=== PATIENT | female | born 1980 | race American Indian/Alaskan Native ===

== ENCOUNTER 2016-10-18 12:26 | Emergency (ER) | payer OTHER ==
--- NOTE | 2016-10-18 16:11 | Emergency Department Report ---
- General Chief Complaint: Upper Respiratory Infection Stated Complaint: COLD SYMPTOMS Time Seen by Provider: 10/18/16 15:55 Source: patient Mode of arrival: Ambulatory Limitations: No Limitations - History of Present Illness Initial Comments: The patient reports cold-like symptoms such as fever, chills, body aches, cough with chest discomfort, sore throat and nausea that started 2 days ago. LMP 2016 MD Complaint: fever, cough, sore throat, rhinorrhea Onset/Timin -: days(s) Severity: severe Severity scale (0 -10): 8 Quality: dull, aching Consistency: constant Improves With: nothing Worsens With: changing head position Context: sick contacts Associated Symptoms: fever, chills, myalgias, rhinorrhea, sore throat, cough, chest pain, nausea. denies: diaphoresis, headache, nasal congestion, stiff neck , shortness of breath, abdominal pain, vomiting, diarrhea, dysuria, rash, confusion, right sweats, weight loss, epistaxis, hoarseness, ear pain Treatments Prior to Arrival: none - Related Data Previous Rx's Medication Instructions Recorded Last Taken Type Cyclobenzaprine HCl [Flexeril 5 MG 5 mg PO Q8HR PRN #15 tablet 09/13/15 Unknown Rx TAB] Azithromycin [Zithromax] 250 mg PO DAILY #6 tablet 07/28/16 Unknown Rx Ibuprofen [Motrin 800 MG tab] 800 mg PO Q8HR PRN #20 tablet 09/24/16 Unknown Rx Acyclovir [Zovirax Tab] 800 mg PO QID #28 tab 10/01/16 Unknown Rx methylPREDNISolone [Medrol] 4 mg PO QAM #21 tab.ds.pk 10/01/16 Unknown Rx traMADol [Ultram 50 MG tab] 50 mg PO TID PRN #21 tablet 10/01/16 Unknown Rx Benzonatate [Tessalon Perles] 100 mg PO Q8HR #12 capsule 10/18/16 Unknown Rx Allergies Allergy/AdvReac Type Severity Reaction Status Date / Time shellfish derived Allergy Angioedema Verified 07/28/16 14:32 vancomycin Allergy Hives Verified 07/28/16 14:32 ED Review of Systems ROS: Stated complaint: COLD SYMPTOMS Other details as noted in HPI Constitutional: chills, fever. denies: diaphoresis, malaise, weakness Eyes: denies: eye pain, eye discharge, vision change ENT: throat pain, congestion (nasal). denies: ear pain, dental pain, hearing loss, epistaxis Respiratory: cough (productive). denies: orthopnea, shortness of breath, SOB with exertion, SOB at rest, stridor, wheezing Cardiovascular: chest pain (discomfort from coughing). denies: palpitations, dyspnea on exertion, orthopnea, edema, syncope, paroxysmal nocturnal dyspnea Gastrointestinal: nausea. denies: abdominal pain, vomiting, diarrhea, constipation, hematemesis, melena, hematochezia Genitourinary: denies: urgency, dysuria, frequency, hematuria, discharge Musculoskeletal: arthralgia (body aches). denies: back pain, joint swelling, myalgia Skin: denies: rash, lesions, change in color, change in hair/nails, pruritus Neurological: denies: headache, weakness, numbness, paresthesias, confusion, abnormal gait, vertigo Psychiatric: denies: anxiety, depression Hematological/Lymphatic: denies: easy bleeding, easy bruising, swollen glands ED Past Medical Hx - Social History Smoking Status: Never Smoker Substance Use Type: None - Medications Home Medications: Home Medications Medication Instructions Recorded Confirmed Last Taken Type Cyclobenzaprine HCl [Flexeril 5 MG 5 mg PO Q8HR PRN #15 tablet 09/13/15 Unknown Rx TAB] Azithromycin [Zithromax] 250 mg PO DAILY #6 tablet 07/28/16 Unknown Rx Ibuprofen [Motrin 800 MG tab] 800 mg PO Q8HR PRN #20 tablet 09/24/16 Unknown Rx Acyclovir [Zovirax Tab] 800 mg PO QID #28 tab 10/01/16 Unknown Rx methylPREDNISolone [Medrol] 4 mg PO QAM #21 tab.ds.pk 10/01/16 Unknown Rx traMADol [Ultram 50 MG tab] 50 mg PO TID PRN #21 tablet 10/01/16 Unknown Rx Benzonatate [Tessalon Perles] 100 mg PO Q8HR #12 capsule 10/18/16 Unknown Rx ED Physical Exam - General Limitations: No Limitations General appearance: alert, in no apparent distress - Head Head exam: Present: atraumatic, normocephalic, normal inspection - Eye Eye exam: Present: normal appearance, PERRL, EOMI Pupils: Present: normal accommodation - ENT ENT exam: Present: normal exam, normal orophraynx, mucous membranes moist, TM's normal bilaterally, normal external ear exam, other (swelling to nasal turbinates). Absent: mucous membranes dry - Expanded ENT Exam Expanded Ear exam: Present: normal external inspection. Absent: auricular hematoma, auricular trauma Mouth exam: Present: normal external inspection, tongue normal. Absent: drooling, trismus, muffled voice, tongue elevation, laceration Teeth exam: Present: normal inspection Throat exam: Positive: normal inspection. Negative: tonsillar erythema, tonsillomegaly, tonsillar exudate, R peritonsillar mass, L peritonsillar mass - Neck Neck exam: Present: normal inspection, full ROM. Absent: tenderness, meningismus, lymphadenopathy, thyromegaly - Respiratory Respiratory exam: Present: normal lung sounds bilaterally, chest wall tenderness (with palpation). Absent: respiratory distress, wheezes, rales, rhonchi, stridor, accessory muscle use, decreased breath sounds, prolonged expiratory - Cardiovascular Cardiovascular Exam: Present: regular rate, normal rhythm, normal heart sounds. Absent: systolic murmur, diastolic murmur, rubs, gallop, clicks, JVD, S3, S4 - GI/Abdominal GI/Abdominal exam: Present: soft, normal bowel sounds. Absent: distended, tenderness, guarding, rebound, rigid - Extremities Exam Extremities exam: Present: normal inspection, full ROM, normal capillary refill. Absent: tenderness, pedal edema, joint swelling, calf tenderness - Back Exam Back exam: Present: normal inspection. Absent: CVA tenderness (R), CVA tenderness (L) - Neurological Exam Neurological exam: Present: alert, oriented X3, CN II-XII intact, normal gait, reflexes normal. Absent: motor sensory deficit - Psychiatric Psychiatric exam: Present: normal affect, normal mood - Skin Skin exam: Present: warm, dry, intact, normal color. Absent: rash ED Course Vital Signs 10/18/16 12:53 Temperature 98.2 F Pulse Rate 82 Respiratory 16 Rate Blood Pressure 130/76 O2 Sat by Pulse 98 Oximetry ED Medical Decision Making - Lab Data Vital Signs 10/18/16 12:53 Temperature 98.2 F Pulse Rate 82 Respiratory 16 Rate Blood Pressure 130/76 O2 Sat by Pulse 98 Oximetry - Medical Decision Making The course of ED, all other systems are unremarkable except for documentation in HPI. Patient has prescriptions at home for Claritin, Flonase and Ibuprofen. Tessalon Perles will be added to her medication regimen. She was instructed to follow up with selective referral given at discharge, she verbalize understanding - Differential Diagnosis Upper respiratory infection, Rhinorrhea Critical care attestation.: If time is entered above; I have spent that time in minutes in the direct care of this critically ill patient, excluding procedure time. ED Disposition Clinical Impression: Upper respiratory infection Qualifiers: URI type: unspecified viral URI Qualified Code(s): J06.9 - Acute upper respiratory infection, unspecified; B97.89 - Other viral agents as the cause of diseases classified elsewhere Disposition: DISCHARGED TO HOME OR SELFCARE Is pt being admited?: No Does the pt Need Aspirin: No Condition: Stable Instructions: Upper Respiratory Infection (ED) Additional Instructions: Take medication as directed. Follow up with the selective referrals given at discharge. Return back to the ED for worsening symptoms or concerns Prescriptions: Benzonatate [Tessalon Perles] 100 mg PO Q8HR #12 capsule Referrals: PRIMARY CARE [Primary Care Provider] - 3-5 Days [facility] [Outside] - 3-5 Days Forms: Work/School Release Form(ED) Time of Disposition: 16:15
[2016-10-18 16:48] VITALS: BP 122/88
== END 2016-10-18 16:52 | disposition home or self-care (01) ==
LOC: ED 12:26
DX: J06.9 Acute upper respiratory infection, unspecified (principal); B97.89 Other viral agents as the cause of diseases classified elsewhere; Z88.1 Allergy status to other antibiotic agents; Z91.013 Allergy to seafood
CPT/HCPCS: 99282